=== PATIENT | female | born 1960 | race Caucasian/White ===

== ENCOUNTER → 2017-12-27 | Outpatient (CLI) | payer MEDICARE ==
[~2017-12-27] MED LIST: ALBU0.08 NEB; ALBUAER3 INH; BENZ100 PO; CETI5TAB2 PO; CITA40TA4 PO; CYCL10TA PO; DULO1CAP2 PO; FISH1000 PO; HYDR-3583 PO; IBUP1TAB7 PO; IPRASOL INH; LITH300T3 PO; LYRI150C PO; MAGICADU2 SWISH-SWAL; MOME17I EACH NARE; MULTTAB25; NEBULIZER1 MI1; PRED20 PO; SYMB160A INH; TIOT12.9 INH; TIZA4TAB PO; TURM500C3; TUSSSUS2 PO; XANA1TAB2 PO; ZOLP10TA3 PO
--- NOTE | 2017-12-28 09:28 | RSPPFT ---
DATE OF PROCEDURE: 12/27/17 COMMENTS: Spirometry shows FVC of 2.6 at 83% of predicted, FEV1 of 1.5 at 61%, FEV1/FVC ratio is decreased. Flow is decreased at FEF 25, FEF 50, FEF 75 and FEF 25-75. There is no response after bronchodilator treatment. Lung volumes show residual volume is increased. TLC is normal. Diffusion capacity is normal. Flow volume loop indicates an obstructive pattern. Room air arterial blood gases show pH of 7.4, PCO2 of 47, PO2 of 53, BiCarb of 29 and Saturation at 81%. 6-minute walk test shows no de-saturation. IMPRESSION: 1. Moderately severe obstructive lung disease. 2. No response after bronchodilator treatment. 3. Lung volumes show mild hyperinflation. 4. Decreased diffusion capacity. 5. Blood gases show hypoxia and compensated respiratory acidosis. 6. 6-minute walk test shows no de-saturation.
== END ==
LOC: PHRSP 10:30
PROVIDERS: ATTEND Specialist
DX: J44.9 Chronic obstructive pulmonary disease, unspecified (principal)
CPT/HCPCS: 36600; 82805; 94060; 94618; 94726; 94729